=== PATIENT | female | born 1980 | race Caucasian/White ===

== ENCOUNTER 2024-01-15 21:28 | Inpatient (IN) | payer BC, MEDICAID, SELFPAY ==
[2024-01-15 21:37] VITALS: BP 137/90; PULSE 78; RESP 20; TEMP 36.7; O2SAT 97; BMI 55.0
[2024-01-15] MEDS: nicotine 2 mg Gum BUCCAL (22:08)
[2024-01-15] MEDS: trazodone 50 mg Tablet PO (22:08)
[2024-01-15] MEDS: acetaminophen 325 mg Tablet 650 MG PO (22:08)
[2024-01-15] MEDS: OLANZapine 5 mg ODT PO (22:08)
--- NOTE | 2024-01-15 22:38 | PC.ADMIT ---
[email or web address] Admission Note: The patient,Lor Munguia,43 y/o, was given written information regarding hospital policies, unit procedures and contact persons. Patient's smoking status: .1-2 PACKS A DAY Vital Signs - 8 hr 01/15/24 21:37 01/15/24 22:00 Temperature 98.1 F Pulse Rate 78 Respiratory Rate 20 H Blood Pressure 137/90 Pulse Oximetry 97 Oxygen Delivery Method Room Air Room Air ADMITTED FROM [facility]. PT IS A DIRECT ADMIT AND WAS ADMITTED AT 2135 VIA EMS TRANSPORTATION. PT IS TEARFUL UPON ADMISSION AND IS CRYING DUE TO BEING HUNGRY. PT WAS GIVEN A SANDWICH AND CHIPS WHICH SHE ATE BUT CONTINUES TO CRY STATING I NEED REAL FOOD, JUST HEAT UP THE SANDWICH. STAFF THEN HEATED UP A SANDWICH REQUESTED AND PT ATE THAT WELL. PT STATES SHE IS HERE BECAUSE I'M NOT IN MY RIGHT MIND PT IS VOLUNTARY WITH AFFIDAVIT. PT IS OBSERVED YELLING AND SCREAMING INTERMITTENTLY. PT STATES ITS BECAUSE I'M GALDED PT THEN LIFTED UP HER ABDOMEN AND SHOWED RN. PT IS ALSO NOTED TO HAVE REDNESS AND IRRITATION IN [facility], NYSTATIN CREAM WAS ORDERED. SKIN ASSESSMENT ALSO REVEALED 2 SMALL SCABS ON RIGHT LEG ABOVE PTS KNEE. PT DENIES SI/HI AND AVH AT THIS TIME. STATES SHE DOES HEAR VOICES AT TIMES BUT NOT RIGHT NOW> PT RATES PAIN IN [facility] AND ABDOMINAL FOLD 6/10. PT WAS DRESSED OUT AND WANDED PER POLICY. PT IS NOTED TO HAVE A SAD AND DEPRESSED AFFECT. RATES ANXIETY AND DEPRESSION 10/10. PNEUMATIC PRESS HAND WAS NOTIFIED THAT PT WOULD LIKE ANXIETY MEDS, TYLENOL AND NICOTINE GUM. PT WAS ORIENTATED TO UNIT, SAFETY RULES AND NPU GUIDELINES WELL SCHEDULE. PT VERBALIZED UNDERSTANDING. ALERT AND ORIENTATED TO SELF, SITUATION AND PLACE. REPORTS BM ON 01/13/24. ALL QUESTIONS ANSWERED AND SUPPORT WAS VOICED.
[2024-01-15] MEDS: diphenhydrAMINE 50 mg/mL SDV 1mL IM (22:49)
[2024-01-15] MEDS: haloperidol inj 5 mg/mL INJ 1 mL IM (22:49)
[2024-01-15] MEDS: LORazepam 2 mg/mL INJ 1 mL IM (22:50)
--- NOTE | 2024-01-15 23:35 | PC.NURSE ---
NYSTATIN CREAM NOT AVAILABLE TO GIVE DUE TO NOT BEING IN [place]. PT WAS OFFERED NYSTATIN POWDER BUT PT STATES IT DOESN'T WORK, THEY PUT THAT ON ME WHEN I WAS IN THE OTHER ER AND IT MADE IT WORSE. PT WAS EDUCATED THAT SHE CAN HAVE THE POWDER OR WAIT UNTIL PHARMACY IS HERE AT 0600 AM TO FILL THE CREAM. PT CHOOSES TO WAIT TIL THE AM. ALL QUESTIONS ANSWERED AND SUPPORT WAS VOICED.
--- NOTE | 2024-01-15 23:36 | PC.NURSE ---
Pt was given B-52 due to behaviors of screaming non-stop and disrupting the perry. Pt was given Ativan 2mg IM and Haldol 5mg IM in the left deltoid by this CORNER CUTTER and given Benadryl 50mg IM in right deltoid by RN. Pt continued to scream loud and cry, pt was moved to room 170. All needs have been met. Will continue to monitor.
[2024-01-16 06:00] VITALS: BP 125/78; PULSE 99; RESP 20; TEMP 37.1; O2SAT 96
--- NOTE | 2024-01-16 06:35 | PC.NURSE ---
PT RECEIVED MULTIPLE PRN'S THIS SHIFT. PT RECEIVED TRAZODONE AND ZYDIS SHORTLY AFTER ADMISSION FOR ANXIETY AND ASSIST WITH SLEEP. MEDICATIONS WERE NOT EFFECTIVE AND PT CONTINUED TO SCREAM AND YELL HAVING EXTREME ANXIETY AND AGITATION. PT WAS UNABLE TO BE REDIRECTED VERBALLY AND WOKE MULTIPLE PTS UP. PT ROOM WAS CHANGED TO 170 AND PT WAS TAKEN TO THE SOUTH SIDE DUE TO INCREASED PT ACUITY, AGITATION AND YELLING/SCREAMING VERY LOUDLY.. PT RECEIVED ATIVAN 2 MG, HALDOL 5 MG AND BENADRYL 50 MG IM DUE TO HER INCREASED AGITATION. WHEN NURSES GAVE PT THE INJECTIONS PT STARTED TO YELL AND CRY RUBBING HER ARMS. STATING THAT HURT THAT HURT. PT WAS CRYING VERY LOUDLY AND WAS WANTING TO CALL HER FAMILY TO CHECK ON HER SON. PT WAS EDUCATED THAT PHONE TIME WAS OVER AND DID NOT START AGAIN UNTIL 700 AM. THIS AGITATED THE PT WORSE. THIS RN ASKED PT IF SHE COULD CALM DOWN FOR 5-10 MINUTES THEN RN WOULD LET HER USE THE PHONE FOR 5 MINUTES. PT AGREED AND DID CALM. PT USED THE PHONE TO CALL HER FAMILY. PT THEN WANTED TO USE THE PHONE AGAIN. RN REMINDED PT THAT THE PHONES WOULD BE ON AT 700 AM. PT WAS GIVEN ANOTHER SNACK AND DRINK AND ASSISTED HER ROOM. MEDICATIONS DEEMED EFFECTIVE. PT WAS ABLE TO LAY DOWN AND REST AND SLEPT APPROXIMATELY 6 HOURS THIS SHIFT AND HAD NO OTHER COMPLAINTS OF ANXIETY. PT IS AWAKE AND WANTING TO USE THE PHONE, PT WAS GIVEN COFFEE AND INFORMED THE PHONES WOULD BE ON IN 25 MINUTES. SUPPORT WAS VOICED.
[2024-01-16] MEDS: acetaminophen 325 mg Tablet 650 MG PO (10:13)
[2024-01-16] MEDS: hyDROXYzine 25 mg Capsule 50 MG PO ×2 (10:16→22:18)
[2024-01-16] MEDS: nystatin cream 30 gm 1 APPLIC TOPICAL ×3 (11:18→20:58)
[2024-01-16] MEDS: nicotine 2 mg Gum BUCCAL ×2 (12:38→17:59)
[2024-01-16] MEDS: OLANZapine 5 mg ODT PO ×2 (12:47→20:56)
[2024-01-16] MEDS: CLONazepam 1 mg Tablet PO (13:48)
--- NOTE | 2024-01-16 13:55 | PC.NURSE ---
Pt's twin sister Jing Munguia [phone].
[2024-01-16 14:00] VITALS: BP 151/84; PULSE 82; RESP 16; TEMP 36.5; O2SAT 96
[2024-01-16] MEDS: ibuprofen 800 mg tablet PO ×2 (14:06→20:57)
--- NOTE | 2024-01-16 16:18 | PC.NURSE ---
Pt's methadone clinic [facility] Hours of operation [phone]
[2024-01-16 17:01] VITALS: RESP 16; O2SAT 96
[2024-01-16] MEDS: methadone 10 mg Tablet 140 MG PO (17:01)
[2024-01-16] MEDS: hydroCHLOROthiazide 25 mg Tablet PO (19:03)
[2024-01-16] MEDS: lisinopril 20 mg Tablet PO (19:03)
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
[2024-01-16 20:27] VITALS: RESP 18
--- NOTE | 2024-01-16 20:27 | PC.NURSE ---
Went to obtain patients vitals. Due to patients manic behavior, patient was sleeping so RR were obtained only. CN Notified.
[2024-01-16] MEDS: gabapentin 400 mg Capsule 800 MG PO (20:57)
[2024-01-16] MEDS: prazosin 1 mg Capsule 2 MG PO (20:57)
[2024-01-16] MEDS: trazodone 50 mg Tablet PO ×2 (20:57→21:35)
[2024-01-16] MEDS: nystatin powder 15 gm Btl 1 APPLIC TOPICAL (20:58)
[2024-01-16] MEDS: diphenhydrAMINE 50 mg Capsule PO (22:25)
[2024-01-16] MEDS: haloperidol 5 mg Tablet PO (22:25)
[2024-01-16] MEDS: LORazepam 2 mg Tablet PO (22:25)
--- NOTE | 2024-01-17 05:14 | PC.NURSE ---
PT RECEIVED SEVERAL PRN MEDICATIONS THIS SHIFT FOR SLEEP AND INCREASED REPORTS OF ANXIETY. PT WAS GIVEN ZYDIS EARLIER IN THE SHIFT AND REPORTED THAT IT DID NOT WORK. PT WAS ALSO GIVEN TWO DOSES OF TRAZODONE FOR SLEEP. PT WAS THEN GIVEN VISTARIL FOR CONTINUED REPORTS OF ANXIETY. IMMEDIATELY AFTER TAKING THE VISTARIL PT STARTED CRYING AND BECAME VERY LOUD YELLING IT WON'T WORK IT JUST WON'T WORK WHY DIDN'T THAT START MY XANAX OR GIVE ME CLONAPIN THATS THE ONLY STUFF THAT WORKS ON ME. PT WAS VERBALLY REDIRECTED AND EDUCATION WAS PROVIDED. DR. MCCLURE WAS CONTACTED TO MAKE SURE IT WOULD BE OK TO GIVE PT ORAL ATIVAN, BENADRYL AND HALDOL. DR. MCCLURE STATED IT WAS FINE AND PT WAS GIVEN 2 MG ATIVAN, HALDOL 5 MG AND BENADRYL 50 MG ORDERED FOR ANXIETY AND AGITATION. PT HAD NO OTHER COMPLAINTS OF ANXIETY THROUGH OUT THE SHIFT AND WAS ABLE TO SLEEP 7-8 HOURS THIS SHIFT. MEDICATIONS DEEMED EFFECTIVE. PT IS CURRENTLY RESTING WITH EYES CLOSED WITH NO DISTRESS NOTED.
[2024-01-17 06:00] VITALS: RESP 17
--- NOTE | 2024-01-17 06:48 | PC.NURSE ---
pt refused vs [id number]
[2024-01-17] MEDS: gabapentin 400 mg Capsule 800 MG PO (08:45)
[2024-01-17] MEDS: lisinopril 20 mg Tablet PO (08:45)
[2024-01-17] MEDS: hydroCHLOROthiazide 25 mg Tablet PO (08:45)
[2024-01-17] MEDS: nystatin cream 30 gm 1 APPLIC TOPICAL (08:47)
[2024-01-17 09:03] VITALS: RESP 16
[2024-01-17] MEDS: methadone 10 mg Tablet 260 MG PO (09:03)
[2024-01-17] MEDS: hyDROXYzine 25 mg Capsule 50 MG PO (09:04)
[2024-01-17] MEDS: nicotine 2 mg Gum BUCCAL (11:55)
[2024-01-17] MEDS: OLANZapine 5 mg ODT PO (12:40)
[2024-01-17 13:20] VITALS: RESP 16
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
== END 2024-01-17 13:35 | disposition home or self-care (01) | DRG 885 ==
PROVIDERS: Admitting Provider Psychiatry & Neurology Psychiatry; Visit Provider Psychiatry & Neurology Psychiatry
DX: F29 Unspecified psychosis not due to a substance or known physiological condition (principal); F11.20 Opioid dependence, uncomplicated; F31.9 Bipolar disorder, unspecified; I10 Essential (primary) hypertension; Z62.810 Personal history of physical and sexual abuse in childhood
CPT/HCPCS: 96372; 97150; 97165; J1200; J1630; J2060; Q0163